=== PATIENT | female | born 1970 | race Caucasian/White ===

== ENCOUNTER 2016-06-12 20:36 | Emergency (ER) | payer SELFPAY ==
[~2016-06-12] VITALS: Ht 152.4 cm; Wt 54.4 kg
[2016-06-12 20:49] VITALS: BP 151/100
== END 2016-06-12 21:59 | disposition home or self-care (01) ==
LOC: ER 20:39
DX: Z53.21 Procedure and treatment not carried out due to patient leaving prior to being seen by health care provider (principal)
CPT/HCPCS: A4606; Z7610